=== PATIENT | female | born 1960 ===

== ENCOUNTER 2017-04-10 13:12 | Observation (INO) | payer OTHER ==
[2017-04-10] MEDS ORDERED: Nitroglycerin 2% Ointment Foilpak UD TOP STA (13:34)
--- NOTE | 2017-04-10 13:35 | ED PDOC ---
HPI: General Adult Time Seen by Provider: 04/10/17 13:33 Chief Complaint (Nursing): Chest Pain Chief Complaint (Provider): chest pain History Per: Patient (56 y/o femal h/o HTN here for evaluation of chest pain that occurred today around 6:30am while walking. States she felt chest pressure that was worse with deep breathing at that time lasting short duration of few minutes. Patient has noted left hand numbness since yesterday. Denies any weakness in this extremity. Noticed sensation of numbness by face around during episode of chest pain. Has h/o HTn. Denies any DM/HLD/smoking/h/o MT/h/ o CVA.) Past Medical History Reviewed: Historical Data, Nursing Documentation, Vital Signs Vital Signs: Last Vital Signs Temp 98.6 F 04/10/17 13:13 Pulse 61 04/10/17 15:11 Resp 20 04/10/17 15:11 BP 148/76 04/10/17 15:11 Pulse Ox 98 04/10/17 15:11 - Family History Family History: States: No Known Family Hx - Allergies Allergies/Adverse Reactions: Allergies Allergy/AdvReac Type Severity Reaction Status Date / Time No Known Allergies Allergy Verified 04/10/17 13:13 Review of Systems ROS Statement: Except As Marked, All Systems Reviewed And Found Negative Physical Exam - Reviewed Nursing Documentation Reviewed: Yes Vital Signs Reviewed: Yes - Physical Exam Appears: Positive for: Well, Non-toxic, No Acute Distress Head Exam: Positive for: ATRAUMATIC, NORMAL INSPECTION, NORMOCEPHALIC Skin: Positive for: Normal Color, Warm, DRY Eye Exam: Positive for: EOMI, Normal appearance, PERRL ENT: Positive for: Normal ENT Inspection Neck: Positive for: Normal, Painless ROM Cardiovascular/Chest: Positive for: Regular Rate, Rhythm Respiratory: Positive for: CNT, Normal Breath Sounds Gastrointestinal/Abdominal: Positive for: Normal Exam, Bowel Sounds, Soft Back: Positive for: Normal Inspection Extremity: Positive for: Normal ROM Neurologic/Psych: Positive for: Alert, Oriented - Laboratory Results Result Diagrams: 04/10/17 13:40 04/10/17 13:40 - ECG ECG Rhythm: Positive for: Sinus Rhythm (q wave lead III. non-specific t wave abnormality v3-v5) O2 Sat by Pulse Oximetry: 98 - Progress ED Course And Treament: slg nitro x 1 dose Patient notes improvement of left arm numbness but headache Took asa prior to ED. Tylenol 975mg x 1 dose Repeat BP 130/[address]: neg CXR: neg d/w family med resident. Disposition - Clinical Impression Clinical Impression: Chest pain - Patient ED Disposition Is Patient to be Admitted: Yes - Disposition Disposition Time: 15:56 Condition: FAIR - Pt Status Changed To: Hospital Disposition Of: Observation
[2017-04-10 13:51] LABS: BASO # 0.1 K/uL (0.0-0.2); BASO % 0.9 % (0.0-2.0); EOS # 0.1 K/uL (0.0-0.7); EOS % 0.9 % (0.0-4.0); HEMATOCRIT 41.5 % (34.0-47.0); LYMPH # 2.5 K/uL (1.0-4.3); LYMPH % 29.3 % (20.0-40.0); MEAN CELL VOLUME 90.3 fl (81.0-99.0); MEAN CORPUSCULAR HEMOGLOBIN 29.6 pg (27.0-31.0); MEAN CORPUSCULAR HGB CONC 32.8 g/dL (33.0-37.0); MEAN PLATELET VOLUME 8.1 fl (7.2-11.7); MONO # 0.4 K/uL (0.0-0.8); MONO % 5.2 % (0.0-10.0); NEUT # 5.5 K/uL (1.8-7.0); NEUT % 63.7 % (50.0-75.0); NRBC % 0.1 % (0.0-0.0); RED CELL DISTRIBUTION WIDTH 12.7 % (11.5-14.5); WHITE BLOOD COUNT 8.6 K/uL (4.8-10.8)
[2017-04-10 13:59] LABS: ALB/GLOB RATIO 1.2 (1.0-2.1); ALKALINE PHOSPHATASE 90 U/L (38-126); ALT/SGPT 36 U/L (9-52); AST/SGOT 32 U/L (14-36); BILIRUBIN,TOTAL 0.3 mg/dl (0.2-1.3); BLOOD UREA NITROGEN 15 mg/dl (7-17); CALCIUM 9.8 mg/dL (8.4-10.2); CARBON DIOXIDE 25 mmol/L (22-30); CHLORIDE 105 mmol/L (98-107); GFR AFRICAN-AMERICAN > 60; GLUCOSE,RANDOM 100 mg/dL (65-105); MAGNESIUM 1.8 MG/DL (1.6-2.3); POTASSIUM 3.7 MMOL/L (3.6-5.0); SODIUM 143 mmol/l (132-148); TOTAL PROTEIN 8.7 G/DL (6.3-8.2)
--- NOTE | 2017-04-10 14:03 | RAD ---
HISTORY: chest pain COMPARISON: No prior. FINDINGS: LUNGS: No active pulmonary disease. PLEURA: No significant pleural effusion identified, no pneumothorax apparent. CARDIOVASCULAR: Heart size is upper limits of normal. OSSEOUS STRUCTURES: No significant abnormalities. VISUALIZED UPPER ABDOMEN: Normal. OTHER FINDINGS: None. IMPRESSION: No active disease.
--- NOTE | 2017-04-10 15:19 | CT ---
PROCEDURE: CT HEAD WITHOUT CONTRAST. HISTORY: numbness left hand COMPARISON: None available. TECHNIQUE: Axial computed tomography images were obtained through the head/brain without intravenous contrast. Radiation dose: Total exam DLP = 762.27 mGy-cm. This CT exam was performed using one or more of the following dose reduction techniques: Automated exposure control, adjustment of the mA and/or kV according to patient size, and/or use of iterative reconstruction technique. FINDINGS: HEMORRHAGE: No acute parenchymal, subarachnoid or extra-axial hemorrhage. BRAIN: No evidence of large acute infarct. There appears be some very minimal chronic periventricular white matter ischemic changes most conspicuous in the perifrontal horn white matter. . . There are small bilateral age-indeterminate anterior basal ganglia ischemic changes as well. Note that small hyperacute infarct may not be visualized on initial CT imaging. Ventricular and sulcal size are within range of normal for this patient's stated age. No obvious parenchymal nor extra-axial mass or collection seen on this noncontrast study. VENTRICLES: No evidence of obstructive hydrocephalus CALVARIUM: Calvarium is intact. PARANASAL SINUSES: Unremarkable as visualized. No significant inflammatory changes. MASTOID AIR CELLS: Unremarkable as visualized. No inflammatory changes. OTHER FINDINGS: None. IMPRESSION: No evidence of large acute infarct. There appears be some very minimal chronic periventricular white matter ischemic changes most conspicuous in the perifrontal horn white matter. . . There are small bilateral age-indeterminate anterior basal ganglia ischemic changes as well. Note that small hyperacute infarct may not be visualized on initial CT imaging.
--- NOTE | 2017-04-10 18:18 | CP.PCM.HP ---
History of Present Illness - History of Present Illness History of Present Illness: 56 yo female with no significant PMH came in because of chest discomfort since early this morning accompanied with numbness of the face and left upper extremity. The chest discomfort came on and off, usually aggravated with deep breathing until it disappeared around noon time. The numbness had disappeared also around the same time.. She denied SOB, fever or chills. Present on Admission - Present on Admission Any Indicators Present on Admission: No History of DVT/PE: No History of Uncontrolled Diabetes: No Urinary Catheter: No Decubitus Ulcer Present: No Review of Systems - Review of Systems All systems: reviewed and no additional remarkable complaints except (aside from those mentioned above, 12 point system review were negative by me) Past Patient History - Tetanus Immunizations Tetanus Immunization: Unknown - Past Medical History & Family History Pertinent Family History: mother of NC at 41 yrs old - Past Social History Smoking Status: Never Smoked Alcohol: None Drugs: Denies Home Situation {Lives}: With Family - CARDIAC Hx Hypertension: Yes (not on any medication) - PULMONARY Hx Respiratory Disorders: No - NEUROLOGICAL Hx Neurological Disorder: No - HEENT Hx HEENT Problems: No - RENAL Hx Chronic Kidney Disease: No - ENDOCRINE/METABOLIC Hx Endocrine Disorders: No - HEMATOLOGICAL/ONCOLOGICAL Hx Blood Disorders: No - INTEGUMENTARY Hx Dermatological Problems: No - MUSCULOSKELETAL/RHEUMATOLOGICAL Hx Musculoskeletal Disorders: No - GASTROINTESTINAL Hx Gastrointestinal Disorders: No - GENITOURINARY/GYNECOLOGICAL Hx Genitourinary Disorders: No - PSYCHIATRIC Hx Psychophysiologic Disorder: No Hx Substance Use: No - SURGICAL HISTORY Hx Surgeries: Yes Hx Section: Yes Other/Comment: carpal tunnel surgery on right hand - ANESTHESIA Hx Anesthesia: Yes Hx Anesthesia Reactions: No Meds Allergies/Adverse Reactions: Allergies Allergy/AdvReac Type Severity Reaction Status Date / Time No Known Allergies Allergy Verified 04/10/17 13:13 Physical Exam - Constitutional Appears: No Acute Distress - Head Exam Head Exam: ATRAUMATIC - Eye Exam Eye Exam: absent: Scleral icterus - ENT Exam ENT Exam: Mucous Membranes Moist - Neck Exam Neck exam: Negative for: Meningismus - Respiratory Exam Respiratory Exam: absent: Rhonchi, Wheezes, Respiratory Distress - Cardiovascular Exam Cardiovascular Exam: REGULAR RHYTHM, +S1, +S2 - GI/Abdominal Exam GI & Abdominal Exam: Soft. absent: Tenderness - Rectal Exam Rectal Exam: Deferred - Extremities Exam Extremities exam: Negative for: pedal edema - Back Exam Back exam: NORMAL INSPECTION - Neurological Exam Neurological exam: Alert, Oriented x3 - Psychiatric Exam Psychiatric exam: Normal Affect - Skin Skin Exam: Dry, Intact Results - Vital Signs Recent Vital Signs: Last Vital Signs Temp 98.6 F 04/10/17 13:13 Pulse 61 04/10/17 15:11 Resp 20 04/10/17 15:11 BP 148/76 04/10/17 15:11 Pulse Ox 98 04/10/17 15:57 - Labs Result Diagrams: 04/10/17 13:40 04/10/17 13:40 Assessment & Plan (1) Chest pain Status: Acute Comment: place on observation in telemetry. serial Troponin and EKG. Lipid profile. ASA 81mg PO daily (2) HTN (hypertension) Status: Acute Comment: BP stable. low salt diet. monitor BP
--- NOTE | 2017-04-10 23:41 | CARD ---
APPROVED REPORT EKG Measurement Heart [id number] WI [id number] <Conclusion> Sinus bradycardia Inferior infarct, age undetermined Nonspecific anterior T wave changes Abnormal ECG
[2017-04-11 04:24] LABS: RBC URINE 1 /hpf (0-3); URINE BACTERIA RARE (<OCC); URINE BILIRUBIN NEGATIVE (NEGATIVE); URINE BLOOD NEGATIVE (NEGATIVE); URINE COLOR YELLOW (YELLOW); URINE GLUCOSE (UA) NEG (Normal); URINE KETONE NEGATIVE (NEGATIVE); URINE LEUKOCYTE ESTERASE NEG Leu/uL (Negative); URINE PROTEIN NEGATIVE (NEGATIVE); URINE UROBILINOGEN 0.2-1.0 mg/dL (0.2-1.0); WBC URINE 1 /hpf (0-5)
[2017-04-11 07:33] LABS: BASO % 0.5 % (0.0-2.0); EOS # 0.1 K/uL (0.0-0.7); EOS % 1.5 % (0.0-4.0); HEMATOCRIT 40.3 % (34.0-47.0); LYMPH # 2.6 K/uL (1.0-4.3); LYMPH % 34.3 % (20.0-40.0); MEAN CELL VOLUME 89.7 fl (81.0-99.0); MEAN CORPUSCULAR HGB CONC 33.4 g/dL (33.0-37.0); MEAN PLATELET VOLUME 8.4 fl (7.2-11.7); MONO # 0.5 K/uL (0.0-0.8); MONO % 6.1 % (0.0-10.0); NEUT # 4.4 K/uL (1.8-7.0); NEUT % 57.6 % (50.0-75.0); RED CELL DISTRIBUTION WIDTH 12.9 % (11.5-14.5); WHITE BLOOD COUNT 7.6 K/uL (4.8-10.8)
[2017-04-11] MEDS ORDERED: Potassium Ch 20mEq in D5-1/2NS 1,000 ML IV SCH (07:45)
[2017-04-11 07:46] LABS: BLOOD UREA NITROGEN 12 mg/dl (7-17); CALCIUM 9.3 mg/dL (8.4-10.2); CARBON DIOXIDE 26 mmol/L (22-30); CHLORIDE 106 mmol/L (98-107); CHOLESTEROL 232 mg/dL (0-199); GFR AFRICAN-AMERICAN > 60; GLUCOSE,RANDOM 98 mg/dL (65-105); POTASSIUM 4.1 MMOL/L (3.6-5.0); SODIUM 143 mmol/l (132-148)
[2017-04-11 08:15] LABS: THYROID STIMULATING HORMONE 4.84 mIU/ML (0.46-4.68)
[2017-04-11] MEDS: Pantoprazole 40 mg EC Tab PO SCH (09:00)
[2017-04-11] MEDS: Enoxaparin 40 mg Syringe SC SCH (09:00)
--- NOTE | 2017-04-11 10:34 | CP.PCM.CON ---
History of Present Illness - History of Present Illness History of Present Illness: NEW ONSET CP X 1 YESTERDAY. cp was mid chest, lasting 10 min and resolving on own. moderate in severity. no radiation of pain. no associated sob, palp, diaphoresis. no exacerbating or alleviating factors. pt did take asa prior to presenting to er. no prior episodes. She has no medical hx. and no sig fam hx. pt denies tabacoo or etoh. upon presentation she did have elevated bp w/ o a hx of htn. pt is cp free today. she denies LE pain, swelling, erythema. her d dimer is mildly elevated. Review of Systems - Review of Systems All systems: reviewed and no additional remarkable complaints except - Constitutional Constitutional: absent: As Per HPI, Anorexia, Chills, Daytime Sleepiness, Excessive Sweating, Fatigue, Fever, Frequent Falls, Headache, Increased Appetite , Lethargy, Malaise, Night Sweats, Snoring, Sleep Apnea, Weight Gain, Weight Loss, Weakness, Other - EENT Eyes: absent: As Per HPI, Blind Spots, Blurred Vision, Change in Vision, Decreased Night Vision, Diplopia, Discharge, Dry Eye, Exophthalmos, Floaters, Irritation, Itchy Eyes, Loss of Peripheral Vision, Pain, Photophobia, Requires Corrective Lenses, Sees Flashes, Spots in Vision, Tunnel Vision, Other Visual Disturbances, Loss of Vision, Other Ears: absent: As Per HPI, Decreased Hearing, Ear Discharge, Ear Pain, Tinnitus, Abnormal Hearing, Disequilibrium, Dizziness, Other Nose/Mouth/Throat: absent: As Per HPI, Epistaxis, Nasal Congestion, Nasal Discharge, Nasal Obstruction, Nasal Trauma, Nose Pain, Post Nasal Drip, Sinus Pain, Sinus Pressure, Bleeding Gums, Change in Voice, Dental Pain, Dry Mouth, Dysphagia, Halitosis, Hoarsness, Lip Swelling, Mouth Lesions, Mouth Pain, Odynophagia, Sore Throat, Throat Swelling, Tongue Swelling, Facial Pain, Neck Pain, Neck Mass, Other - Cardiovascular Cardiovascular: Chest Pain, Chest Pain at Rest. absent: As Per HPI, Acrocyanosis, Chest Pain with Activity, Claudication, Diaphoresis, Dyspnea, Dyspnea on Exertion, Edema, Irregular Heart Rhythm, Pain Radiating to Arm/Neck/ Jaw, Leg Edema, Leg Ulcers, Lightheadedness, Orthopnea, Palpitations, Paroxysmal Nocturnal Dyspnea, Pedal Edema, Radiating Pain, Rapid Heart Rate, Slow Heart Rate, Syncope, Other - Respiratory Respiratory: absent: As Per HPI, Cough, Dyspnea, Hemoptysis, Dyspnea on Exertion , Wheezing, Snoring, Stridor, Pain on Inspiration, Chest Congestion, Excessive Mucous Production, Change in Mucous Color, Pain with Coughing, Other - Gastrointestinal Gastrointestinal: absent: As Per HPI, Abdominal Pain, Belching, Bloating, Change in Bowel Habits, Change in Stool Character, Coffee Ground Emesis, Constipation, Cramping, Diarrhea, Dyspepsia, Dysphagia, Early Satiety, Excessive Flatus, Fecal Incontinence, Heartburn, Hematemesis, Hematochezia, Loose Stools, Melena, Nausea, Odynophagia, Temesmus, Vomiting, Other - Genitourinary Genitourinary: absent: As Per HPI, Change in Urinary Stream, Difficulty Urinating, Dysuria, Flank Pain, Hematuria, Pyuria, Nocturia, Urinary Incontinence, Urinary Frequency, Urinary Hesitance, Urinary Urgency, Voiding Freq/Small Amts, Freq UTI, Hx Renal/Bladder Calculi, Hx /Renal Surgery, Bladder Distension, Other - Musculoskeletal Musculoskeletal: absent: As Per HPI, Abnormal Gait, Arthralgias, Atrophy, Back Pain, Deformity, Joint Swelling, Limited Range of Motion, Loss of Height, Muscle Cramps, Muscle Weakness, Myalgias, Neck Pain, Numbness, Radiating Pain into Limb, Stiffness, Tingling, Other - Integumentary Integumentary: absent: As Per HPI, Acne, Alopecia, Bleeding Lesions, Change in Hair, Change in Nails, Change in Pigmentation, Changing Lesions, Dry Skin, Erythema, Furuncle, Hirsutism, Lesions, New Lesions, Non-Healing Lesions, Photosensitivity, Pruritus, Rash, Skin Pain, Skin Ulcer, Sores, Striae, Swelling , Unusual Bruising, Wounds, Jaundice, Other - Neurological Neurological: absent: As Per HPI, Abnormal Gait, Abnormal Hearing, Abnormal Movements, Abnormal Speech, Behavioral Changes, Burning Sensations, Confusion, Convulsions, Disequilibrium, Dizziness, Numbness, Focal Weakness, Frequent Falls , Headaches, Lack of Coordination, Loss of Vision, Memory Loss, Paresthesias, Radicular Pain, Restless Legs, Sensory Deficit, Syncope, Tingling, Tremor, Vertigo, Weakness, Other Visual Disturbances, Other - Psychiatric Psychiatric: absent: As Per HPI, Abnormal Sleep Pattern, Anhedonia, Anxiety, Auditory Hallucinations, Behavioral Changes, Change in Appetite, Change in Libido, Confusion, Depression, Difficulty Concentrating, Hallucinations, Homicidal Ideation, Hopelessness, Irritability, Memory Loss, Mood Swings, Panic Attacks, Paranoia, Suicidal Ideation, Visual Hallucinations, Tactile Hallucinations, Other - Endocrine Endocrine: absent: As Per HPI, Change in Body Appearance, Change in Libido, Cold Intolorance, Deepening of Voice, Excessive Sweating, Fatigue, Flushing, Heat Intolorance, Increase in Ring/Shoe/Hat Size, Palpitations, Polydipsia, Polyphagia, Polyuria, Other - Hematologic/Lymphatic Hematologic: absent: As Per HPI, Easy Bleeding, Easy Bruising, Lymphadenopathy, Other Past Patient History - Tetanus Immunizations Tetanus Immunization: Unknown - Past Medical History & Family History Past Medical History?: No Past Family History: Reviewed and not pertinent - Past Social History Smoking Status: Never Smoked Alcohol: None Drugs: Denies Home Situation {Lives}: With Family Domestic Violence: Negative - CARDIAC Hx Hypertension: No (not on any medication) - PULMONARY Hx Respiratory Disorders: No - NEUROLOGICAL Hx Neurological Disorder: No - HEENT Hx HEENT Problems: No - RENAL Hx Chronic Kidney Disease: No - ENDOCRINE/METABOLIC Hx Endocrine Disorders: No - HEMATOLOGICAL/ONCOLOGICAL Hx Blood Disorders: No - INTEGUMENTARY Hx Dermatological Problems: No - MUSCULOSKELETAL/RHEUMATOLOGICAL Hx Musculoskeletal Disorders: No - GASTROINTESTINAL Hx Gastrointestinal Disorders: No - GENITOURINARY/GYNECOLOGICAL Hx Genitourinary Disorders: No - PSYCHIATRIC Hx Psychophysiologic Disorder: No Hx Substance Use: No - SURGICAL HISTORY Hx Surgeries: Yes Hx Section: Yes Other/Comment: carpal tunnel surgery on right hand - ANESTHESIA Hx Anesthesia: Yes Hx Anesthesia Reactions: No Meds Allergies/Adverse Reactions: Allergies Allergy/AdvReac Type Severity Reaction Status Date / Time No Known Allergies Allergy Verified 04/10/17 13:13 - Medications Medications: Current Medications Acetaminophen (Tylenol 325mg Tab) 650 mg PO Q6 PRN PRN Reason: Pain, Mild (1-3) Aspirin (Aspirin) 325 mg PO DAILY ON LICENSE OF [facility] Last Admin: 04/11/17 09:01 Dose: 325 mg Carvedilol (Coreg) 6.25 mg PO Q12 ON LICENSE OF [facility] Last Admin: 04/11/17 09:02 Dose: Not Given Enoxaparin Sodium (Lovenox) 40 mg SC DAILY ON LICENSE OF [facility] PRN Reason: Protocol Last Admin: 04/11/17 09:00 Dose: 40 mg Potassium Chloride/Dextrose/Sod Cl (Potassium Chl 20 Meq In D5-1/2ns) 1,000 mls @ 125 mls/hr IV .Q8H ON LICENSE OF [facility] Stop: 04/12/17 07:35 Last Admin: 04/11/17 08:55 Dose: 125 mls/hr Nitroglycerin (Nitrostat Sl Tab) 0.4 mg SL Q5M PRN PRN Reason: chest pain Pantoprazole Sodium (Protonix Ec Tab) 40 mg PO DAILY ON LICENSE OF [facility] Last Admin: 04/11/17 09:00 Dose: 40 mg Ramipril (Altace) 2.5 mg PO DAILY ON LICENSE OF [facility] Last Admin: 04/11/17 09:01 Dose: 2.5 mg Physical Exam - Constitutional Appears: Well - Head Exam Head Exam: ATRAUMATIC, NORMAL INSPECTION, NORMOCEPHALIC - Eye Exam Eye Exam: EOMI, Normal appearance, PERRL. absent: Conjunctival injection, Nystagmus, Periorbital swelling, Periorbital tenderness, Scleral icterus Pupil Exam: NORMAL ACCOMODATION, PERRL. absent: Fixed, Irregular, Miosis, Mydriatic, Unequal - ENT Exam ENT Exam: Mucous Membranes Moist, Normal Exam. absent: Mucous Membranes Dry, Normal External Ear Exam, Normal Oropharynx, TM's Normal Bilaterally - Neck Exam Neck exam: Positive for: Normal Inspection. Negative for: Full Rom, Lymphadenopathy, Meningismus, Tenderness, Thyromegaly - Respiratory Exam Respiratory Exam: Clear to Auscultation Bilateral, NORMAL BREATHING PATTERN. absent: Accessory Muscle Use, Chest Wall Tenderness, Decreased Breath Sounds, Prolonged Expiratory Phase, Rales, Rhonchi, Wheezes, Respiratory Distress, Stridor - Cardiovascular Exam Cardiovascular Exam: REGULAR RHYTHM, +S1, +S2, Systolic Murmur. absent: Bradycardia, Tachycardia, Clicks, Diastolic murmur, Gallop, Irregular Rhythm, JVD, RRR, Rubs, +S4 - GI/Abdominal Exam GI & Abdominal Exam: Normal Bowel Sounds, Soft. absent: Bruit, Diminished Bowel Sounds, Distended, Firm, Guarding, Hernia, Hyperactive Bowel Sounds, Hypoactive Bowel Sounds, Mass, Organomegaly, Pulsatile Mass, Rebound, Rigid, Tenderness - Rectal Exam Rectal Exam: Deferred - Extremities Exam Extremities exam: Positive for: normal inspection. Negative for: calf tenderness, full ROM, joint swelling, normal capillary refill, pedal edema, tenderness, pedal pulses present - Back Exam Back exam: NORMAL INSPECTION. absent: CVA tenderness (L), CVA tenderness (R), FULL ROM, muscle spasm, paraspinal tenderness, rash noted, tenderness, vertebral tenderness - Neurological Exam Neurological exam: Alert, CN II-XII Intact, Normal Gait, Oriented x3, Reflexes Normal - Psychiatric Exam Psychiatric exam: Normal Affect, Normal Mood - Skin Skin Exam: Dry, Intact, Normal Color, Warm Results - Vital Signs Recent Vital Signs: Last Vital Signs Temp 98.2 F 04/11/17 08:52 Pulse 60 04/11/17 08:52 Resp 18 04/11/17 08:52 BP 144/87 04/11/17 08:52 Pulse Ox 99 04/11/17 08:52 - Labs Result Diagrams: 04/11/17 07:16 04/11/17 07:16 Labs: Laboratory Results - last 24 hr 04/10/17 04/10/17 04/11/17 22:21 23:21 04:13 WBC RBC Hgb Hct MCV MCH MCHC RDW Plt Count MPV Neut % (Auto) Lymph % (Auto) Dickson % (Auto) Eos % (Auto) Baso % (Auto) Neut # Lymph # Dickson # Eos # Baso # D-Dimer, Quantitative 582 H Sodium Potassium Chloride Carbon Dioxide Anion Gap BUN Creatinine Est GFR ( Amer) Est GFR (Non-Af Amer) Random Glucose Calcium Magnesium Troponin I < 0.0120 Triglycerides Cholesterol LDL Cholesterol Direct HDL Cholesterol TSH 3rd Generation Urine Color Yellow Urine Clarity Clear Urine pH 6.0 Ur Specific [place] 1.012 Urine Protein Negative Urine Glucose (UA) Neg Urine Ketones Negative Urine Blood Negative Urine Nitrate Negative Urine Bilirubin Negative Urine Urobilinogen 0.2-1.0 Ur Leukocyte Esterase Neg Urine RBC (Auto) 1 Urine Microscopic WBC 1 Ur Squamous Epith Cells 1 Urine Bacteria Rare 04/11/17 04/11/17 04/11/17 04:16 07:16 07:16 WBC 7.6 RBC 4.50 Hgb 13.5 Hct 40.3 MCV 89.7 MCH 30.0 MCHC 33.4 RDW 12.9 Plt Count 266 MPV 8.4 Neut % (Auto) 57.6 Lymph % (Auto) 34.3 Dickson % (Auto) 6.1 Eos % (Auto) 1.5 Baso % (Auto) 0.5 Neut # 4.4 Lymph # 2.6 Dickson # 0.5 Eos # 0.1 Baso # 0.0 D-Dimer, Quantitative Sodium 143 Potassium 4.1 Chloride 106 Carbon Dioxide 26 Anion Gap 15 BUN 12 Creatinine 0.8 Est GFR ( Amer) > 60 Est GFR (Non-Af Amer) > 60 Random Glucose 98 Calcium 9.3 Magnesium 1.9 Troponin I < 0.0120 Triglycerides 165 H Cholesterol 232 H LDL Cholesterol Direct 161 H HDL Cholesterol 31 TSH 3rd Generation 4.84 H Urine Color Urine Clarity Urine pH Ur Specific [place] Urine Protein Urine Glucose (UA) Urine Ketones Urine Blood Urine Nitrate Urine Bilirubin Urine Urobilinogen Ur Leukocyte Esterase Urine RBC (Auto) Urine Microscopic WBC Ur Squamous Epith Cells Urine Bacteria - EKG Data EKG Interpreted by: Myself EKG shows normal: Sinus rhythm Rate: Normal - EKG Data EKG comments: nonspecific t wave flattening. Assessment & Plan (1) D-dimer, elevated Status: Acute (2) Chest pain Status: Acute (3) HTN (hypertension) Status: Acute - Assessment and Plan (Free Text) Plan: 1) ECHO TODAY 2) NO CTA PT HAS NO SOB, NO TACHYCARDIA, NO TANYA PAIN OR REDNESS. ALSO STRESS TEST MORE PRESSING AND CT CONTRAST WILL DELAY NUCLEAR ST. 3) EX NUC ST IF NEGATIVE THEN MAY GO HOME FROM CARDIAC STANDPOINT, IF POSITIVE THEN CATH 4) GIVEN HTN PT SHOULD BE D/C ON RAMIPRIL AND COREG 5) F/U IN CLINIC WITH DR REVELES 6) PT IS LOW RISK FOR PE, THUS WOULD LIMIT TESTING TO LE DOPPLER IF CONCERNED. 7) 45 MIN TOTAL CARE TIME 8) DW ER STAFF AND PT AND .
--- NOTE | 2017-04-11 12:49 | US ---
PROCEDURE: Bilateral lower extremity venous duplex Doppler. HISTORY: dimer elevated COMPARISON: None available. TECHNIQUE: Bilateral common femoral, superficial femoral, popliteal and posterior tibial veins were evaluated. Flow was assessed with color Doppler, compressibility, assessment of phasic flow and augmentation response. FINDINGS: COMMON FEMORAL VEIN: Right CFV: Unremarkable. Left CFV: Unremarkable. SUPERFICIAL FEMORAL VEIN: Right SFV: Unremarkable. Left SFV: Unremarkable. POPLITEAL VEIN: Right Popliteal: Unremarkable. Left Popliteal: Unremarkable. POSTERIOR TIBIAL VEIN: Right PTV: Unremarkable. Left PTV: Unremarkable. OTHER FINDINGS: None. IMPRESSION: No evidence of deep venous thrombosis.
--- NOTE | 2017-04-11 15:31 | CP.PCM.PN ---
Subjective - Date & Time of Evaluation Date of Evaluation: 04/11/17 Time of Evaluation: 15:10 - Subjective Subjective: Hospitalist Progress Note (Patient was seen and examined at 3:10 PM 04/11/17 in ER Bed #7) 56 year old female who presented to [facility] ER on 04/10/17 with complaint of Chest Pain since the morning with numbness to the face and left UE which resolved by noon. She came into the ER because she was concerned. Troponins were negative x 3. Cardiology was consulted and Myocardial Perfusion Scan was performed today and results are pending. D-Dimer is elevated and B/L Venous Dopplers are negative and CT Angio Chest will be performed in the morning 04/12/17, as additional contrast could not be given today because of the performance of the Myocardial Perfusion Scan. CT Head was negative. Currently upon FULL ROS there is NO chest pain, NO palpitations, NO SOB/Cough/ Hemoptysis, NO dysphagia/odynophagia, NO abdominal pain, NO n/v/d/c, NO burning/ pain with urination, NO new changes in vision/eye pain, NO new changes in hearing/ear pain, NO lightheadedness/dizziness, NO paresthesias/loss of sensation, NO edema Exam: HEENT: NCA, EOMI, PERRLA, NO pharyngeal erythema/exudate, NO cervical/ supraclavicular/submandibular lymphadenopathy, NO thyromemgaly, Oral Mucosa and Nasal Turbinates are moist Cardio: NS1 and NS2, NO M/R/G Respiratory: CTA B/L, NO R/R/W GI: BS X 4, Soft, NT, ND, NO HSM, NO guarding/rebound tenderness Ext: Pulses are strong and equal, Capillary Refill is 2 seconds, NO edema Neuro: CN II through XII are grossly intact Assessment and Plan: 1). Atypical Chest Pain Troponins x 3 are negative F/U 2D Echocardiogram F/U Myocardial Perfusion Scan Cardiology Dr. Stock ASA 325 mg PO 1x/day Coreg 6.25 mg PO Q12H 2). HTN Ramipril 2.5 mg PO 1x/day Coreg 6.25 mg PO Q12H 3). HLD Triglycerides 165 Total Cholesterol 232 LDL 161 HDL 31 Dietary Consult for education on Low Fat/Low Cholesterol Diet 4). Elevated TSH TSH is slightly elevated at 4.84 F/U T4 and repeat TSH 5). Elevated Quantitative D-Dimer Bilateral Venous Doppler is negative She scored a Zero on Wells Criteria (NO prior DVT/PE, NO Hx Cancer, NO bed rest for the past 3 or more days, NO surgeries/operations in the past 4 weeks, Alternative diagonsis is more likely, NO clinical signs of DVT, NO tachycardia, NO history of hemoptysis) Therefore V/Q Scan has been ordered STAT 6). Prophylactic Measure Protonix 40 mg PO 1x/day Lovenox 40 mg SC 1x/day If the V/Q Scan and the Mycocardial Perfusion Scan are negative then discharge on 04/12/17. Nicholas Gomez D.O. Objective - Vital Signs/Intake and Output Vital Signs (last 24 hours): Temp Pulse Resp BP Pulse Ox 98.0 F 66 16 122/71 100 04/11/17 13:56 04/11/17 13:56 04/11/17 13:56 04/11/17 13:56 04/11/17 13:56 - Medications Medications: Current Medications Acetaminophen (Tylenol 325mg Tab) 650 mg PO Q6 PRN PRN Reason: Pain, Mild (1-3) Aspirin (Aspirin) 325 mg PO DAILY [facility] Last Admin: 04/11/17 09:01 Dose: 325 mg Carvedilol (Coreg) 6.25 mg PO Q12 [facility] Last Admin: 04/11/17 09:02 Dose: Not Given Enoxaparin Sodium (Lovenox) 40 mg SC DAILY [facility] PRN Reason: Protocol Last Admin: 04/11/17 09:00 Dose: 40 mg Potassium Chloride/Dextrose/Sod Cl (Potassium Chl 20 Meq In D5-1/2ns) 1,000 mls @ 125 mls/hr IV .Q8H [facility] Stop: 04/12/17 07:35 Last Admin: 04/11/17 08:55 Dose: 125 mls/hr Nitroglycerin (Nitrostat Sl Tab) 0.4 mg SL Q5M PRN PRN Reason: chest pain Pantoprazole Sodium (Protonix Ec Tab) 40 mg PO DAILY [facility] Last Admin: 04/11/17 09:00 Dose: 40 mg Ramipril (Altace) 2.5 mg PO DAILY [facility] Last Admin: 04/11/17 09:01 Dose: 2.5 mg - Labs Labs: 04/11/17 07:16 04/11/17 07:16
[2017-04-11] MEDS ORDERED: Sodium Chloride 0.9% 1,000 ML IV SCH (15:45)
--- NOTE | 2017-04-11 16:16 | CARD ---
APPROVED REPORT EXAM: Two-dimensional and M-mode echocardiogram with Doppler and color Doppler. Other Information Quality : GoodRhythm : NSR INDICATION Chest Pain 2D DIMENSIONS IVSd1.17 (0.7-1.1cm)LVDd3.82 (3.9-5.9cm) LVOT Diameter1.98 (1.8-2.4cm)PWd0.74 (0.7-1.1cm) IVSs1.47 (0.8-1.2cm)LVDs2.34 (2.5-4.0cm) FS (%) 38.7 %PWs1.09 (0.8-1.2cm) LVEF (%)55.0 (>50%) M-Mode DIMENSIONS Left Atrium (MM)3.47 (2.5-4.0cm)IVSd1.08 (0.7-1.1cm) Aortic Root2.14 (2.2-3.7cm)LVDd4.01 (4.0-5.6cm) Aortic Cusp Exc.1.34 (1.5-2.0cm)PWd1.03 (0.7-1.1cm) IVSs1.72 cmFS (%) 51 % LVDs1.98 (2.0-3.8cm)PWs1.60 cm Mitral Valve MV E Cmupslvp03.1cm/sMV DECEL [id number] A Nokfbuyl27.8cm/s MV ROQ81jqV/A ratio0.8MVA (PHT)2.53cm2 TDI Lateral E' Peak V7.33cm/sMedial E' Peak V5.21cm/sE/Lateral E'8.6 E/Medial E'12.1 Pulmonary Valve PV Peak Pehjeqlq100.3cm/s LEFT VENTRICLE The left ventricle is normal size. There is borderline concentric left ventricular hypertrophy. The left ventricular function is normal. The left ventricular ejection fraction is within the normal range. There is normal LV segmental wall motion. Transmitral Doppler flow pattern is Grade I-abnormal relaxation pattern. RIGHT VENTRICLE The right ventricle is normal size. There is normal right ventricular wall thickness. The right ventricular systolic function is normal. ATRIA The left atrium size is normal. The right atrium size is normal. AORTIC VALVE The aortic valve is not well visualized. No aortic regurgitation is present. There is no aortic valvular stenosis. MITRAL VALVE The mitral valve is normal in structure and function. There is no evidence of mitral valve prolapse. There is no mitral valve stenosis. There is no mitral valve regurgitation noted. TRICUSPID VALVE The tricuspid valve is normal in structure and function. There is no tricuspid valve regurgitation noted. PULMONIC VALVE The pulmonary valve is normal in structure and function. There is no pulmonic valvular regurgitation. GREAT VESSELS The aortic root is normal in size. The IVC is normal in size and collapses >50% with inspiration. PERICARDIAL EFFUSION The pericardium appears normal. <Conclusion> The left ventricle is normal size. There is borderline concentric left ventricular hypertrophy. The left ventricular function is normal. The left ventricular ejection fraction is within the normal range. There is normal LV segmental wall motion. Transmitral Doppler flow pattern is Grade I-abnormal relaxation pattern.
[2017-04-11 18:14] VITALS: BMI 25.5
[2017-04-12 04:57] VITALS: RESP 18
[2017-04-12 07:33] LABS: T4 7.55 ug/dl (5.5-11.0)
[2017-04-12 07:46] LABS: THYROID STIMULATING HORMONE 4.35 mIU/ML (0.46-4.68)
--- NOTE | 2017-04-12 08:28 | CARD ---
APPROVED REPORT EKG Measurement Heart [id number] CA [id number] [id number] <Conclusion> Normal sinus rhythm Inferior infarct, age undetermined Abnormal ECG
[2017-04-12] MEDS: Enoxaparin 40 mg Syringe SC SCH (09:08)
[2017-04-12] MEDS: Pantoprazole 40 mg EC Tab PO SCH (09:08)
--- NOTE | 2017-04-12 10:51 | CARD ---
APPROVED REPORT Protocol: SURESH Test Type: Stress Nuclear Medications: none Medical History: mother of AR at 42years old, carpal tunnel surgery on right hand, Hypertension not on any medication. Target HR: 165 bpm Resting ECG: normal Resting Heart Rate: 74 bpm Resting Blood Pressure: 129/85mmHg submaximum (85%): 140 bpm TEST SUMMARY [id number]/85.0. PRETESTHYPERV.00:[id number]/85.0. PRETESTWARM-UP01:[id number]/85.0. EXERCISESTAGE [id number]/60.0. EXERCISESTAGE [id number]/80.0. EXERCISESTAGE 302:[id number]/80.0. [id number]/60.0. POST EXERCISE Reason for Termination: Target heart rate achieved Target HR: No Max HR: 151 bpm 91% of Maximum Predicted HR: 165 bpm Exercise duration: 08:00 min:sec, 3 Stage Exercise capacity: 10.1METs Max Blood Pressure: 180/60mmHg Blood Pressure response to exercise: normal resting BP - appropriate response Heart Rate response to exercise: appropriate Chest Pain: No, none Angina index: 0 Arrhythmia: No, none ST Change: No, none Deviation: 0 mm Stress EKG Interpretation This 56 y/o female being evaluated for chest pain. Her resting EKG was normal. Resting heart rate was 75 bpm and her resting blood pressure was 129/85. She exercised for 8 minutes with Suresh protocol attaining a heart rate of 151 bpm which is 91% of maximum predicted heart rate Her blood pressure shelby to 180/60 and she attained a workload of 10.10 METs. During the test was no chest pain or shortness of breath. There was no ST changes or arrhythmia noted. Exertion the patient was injected with 30 mCi of Myoview stress imaging was taken one half hour later. EXAM: Myocardial Perfusion REST/STRESS Image QualityGood Imaging Protocol The imaging protocol used to acquire images was Stress Tc-99m/rest Tc-99m 1 day Stress Spect myocardial perfusion imaging was performed in supine position 30 minutes following the injection of 30 mCi of Tc-99 Myoview. Time of rest injection: 13:00 Time of rest imagin:30 At peak stress, the patient was injected intravenously with 10mCi of Tc-99 tetrofosmin after an infusion time of minutes and seconds. Time of stress injection: 11:47 Time of stress imagin:20 Gated Rest Spect was performed 90 minutes after intravenous Tc-99 Myoview injection. The images were gated to evaluate regional wall motion and calculate ventricular ejection fraction. NUCLEAR IMAGE INTERPRETATION The rest and stress images show normal perfusion, normal contraction and thickening. LV Perfusion There is good uptake in all garduno of the left ventricle in stress as well as resting imaging. No signs of ischemia LV Perfusion 1 The rest and stress images show normal perfusion. Wall Motion There is good contractility of the garduno of the left ventricle in stress as well as resting imaging and ejection fraction of 70-75% CONCLUSION 1. Stress myocardial perfusion imaging scan is normal
[2017-04-12 12:28] VITALS: BP 129/82; PULSE 61; TEMP 98.1; O2SAT 98
--- NOTE | 2017-04-12 12:30 | NM ---
COMPARISON: None TECHNIQUE: 46.190 mCi mCi technetium 99-m DTPA aerosol. 5.988 mCi mCI technetium 99-m MAA administered intravenously. FINDINGS: VENTILATION COMPONENT: Normal. PERFUSION COMPONENT: Normal. IMPRESSION: Lowprobability ventilation perfusion scan for pulmonary embolism. Incidentally noted is GI tract tracer activity from patient's preceding/ 04/10/2017 Myoview stress imaging exam
--- NOTE | 2017-04-12 12:57 | CP.PCM.DIS ---
Provider - Provider Date of Admission: 04/10/17 16:36 Attending physician: Shankar Rock MD Primary care physician: Does not have one Consults: Cardiology Dr. Stock Time Spent in preparation of Discharge (in minutes): 40 Hospital Course - Lab Results Lab Results: Most Recent Lab Values WBC 7.6 K/uL (4.8-10.8) 04/11/17 07:16 RBC 4.50 Mil/uL (3.80-5.20) 04/11/17 07:16 Hgb 13.5 g/dL (12.0-16.0) 04/11/17 07:16 Hct 40.3 % (34.0-47.0) 04/11/17 07:16 MCV 89.7 fl (81.0-99.0) 04/11/17 07:16 MCH 30.0 pg (27.0-31.0) 04/11/17 07:16 MCHC 33.4 g/dL (33.0-37.0) 04/11/17 07:16 RDW 12.9 % (11.5-14.5) 04/11/17 07:16 Plt Count 266 K/uL (130-400) 04/11/17 07:16 MPV 8.4 fl (7.2-11.7) 04/11/17 07:16 Neut % (Auto) 57.6 % (50.0-75.0) 04/11/17 07:16 Lymph % (Auto) 34.3 % (20.0-40.0) 04/11/17 07:16 [place] % (Auto) 6.1 % (0.0-10.0) 04/11/17 07:16 Eos % (Auto) 1.5 % (0.0-4.0) 04/11/17 07:16 Baso % (Auto) 0.5 % (0.0-2.0) 04/11/17 07:16 Neut # 4.4 K/uL (1.8-7.0) 04/11/17 07:16 Lymph # 2.6 K/uL (1.0-4.3) 04/11/17 07:16 [place] # 0.5 K/uL (0.0-0.8) 04/11/17 07:16 Eos # 0.1 K/uL (0.0-0.7) 04/11/17 07:16 Baso # 0.0 K/uL (0.0-0.2) 04/11/17 07:16 D-Dimer, Quantitative 582 ng/mlDDU (0-230) H 04/10/17 23:21 Sodium 143 mmol/l (132-148) 04/11/17 07:16 Potassium 4.1 MMOL/L (3.6-5.0) 04/11/17 07:16 Chloride 106 mmol/L (98-107) 04/11/17 07:16 Carbon Dioxide 26 mmol/L (22-30) 04/11/17 07:16 Anion Gap 15 (10-20) 04/11/17 07:16 BUN 12 mg/dl (7-17) 04/11/17 07:16 Creatinine 0.8 mg/dL (0.7-1.2) 04/11/17 07:16 Est GFR ( Amer) > 60 04/11/17 07:16 Est GFR (Non-Af Amer) > 60 04/11/17 07:16 Random Glucose 98 mg/dL (65-105) 04/11/17 07:16 Calcium 9.3 mg/dL (8.4-10.2) 04/11/17 07:16 Magnesium 1.9 MG/DL (1.6-2.3) 04/11/17 04:16 Total Bilirubin 0.3 mg/dl (0.2-1.3) 04/10/17 13:40 AST 32 U/L (14-36) 04/10/17 13:40 ALT 36 U/L (9-52) 04/10/17 13:40 Alkaline Phosphatase 90 U/L (38-126) 04/10/17 13:40 Troponin I < 0.0120 ng/mL (0.00-0.120) 04/11/17 07:16 Total Protein 8.7 G/DL (6.3-8.2) H 04/10/17 13:40 Albumin 4.9 g/dL (3.5-5.0) 04/10/17 13:40 Globulin 3.9 gm/dL (2.2-3.9) 04/10/17 13:40 Albumin/Globulin Ratio 1.2 (1.0-2.1) 04/10/17 13:40 Triglycerides 165 mg/DL (0-149) H 04/11/17 07:16 Cholesterol 232 mg/dL (0-199) H 04/11/17 07:16 LDL Cholesterol Direct 161 mg/dL (0-129) H 04/11/17 07:16 HDL Cholesterol 31 MG/DL (30-70) 04/11/17 07:16 Thyroxine (T4) 7.55 ug/dl (5.5-11.0) 04/12/17 06:40 TSH 3rd Generation 4.35 mIU/ML (0.46-4.68) 04/12/17 06:40 Urine Color Yellow (YELLOW) 04/11/17 04:13 Urine Clarity Clear (Clear) 04/11/17 04:13 Urine pH 6.0 (5.0-8.0) 04/11/17 04:13 Ur Specific [place] 1.012 (1.003-1.030) 04/11/17 04:13 Urine Protein Negative mg/dL (NEGATIVE) 04/11/17 04:13 Urine Glucose (UA) Neg mg/dL (Normal) 04/11/17 04:13 Urine Ketones Negative mg/dL (NEGATIVE) 04/11/17 04:13 Urine Blood Negative (NEGATIVE) 04/11/17 04:13 Urine Nitrate Negative (NEGATIVE) 04/11/17 04:13 Urine Bilirubin Negative (NEGATIVE) 04/11/17 04:13 Urine Urobilinogen 0.2-1.0 mg/dL (0.2-1.0) 04/11/17 04:13 Ur Leukocyte Esterase Neg Mg/uL (Negative) 04/11/17 04:13 Urine RBC (Auto) 1 /hpf (0-3) 04/11/17 04:13 Urine Microscopic WBC 1 /hpf (0-5) 04/11/17 04:13 Ur Squamous Epith Cells 1 /hpf (0-5) 04/11/17 04:13 Urine Bacteria Rare (<OCC) 04/11/17 04:13 - Hospital Course Hospital Course: Hospitalist Discharge Note (Patient was seen and examined at 9:30 AM 04/12/17 in 407-2) 56 year old female who presented to [facility] ER on 04/10/17 with complaint of Chest Pain since the morning with numbness to the face and left UE which resolved by noon. She came into the ER because she was concerned. CT Head showed NO acute infarcts but did show chronic periventricular white matter changes and small bilateral anterior basal ganglia ischemic changes. Troponins were negative x 3. Cardiology was consulted and Myocardial Perfusion Scan was performed 04/11/17 but results not available till 04/12/17 and this was NORMAL. D-Dimer is elevated and B/L Venous Dopplers are negative and V/Q Scan which was ordered STAT on 04/11 was not done till 04/12/17 and this showed Low Probability. Patient does not have a history of HTN but it was noted that her blood pressure was elevated while she was admitted and therefore she was started on Ramipril and Carvedilol. She was also noted to have hyperlipidemia and considering findings on CT Head she was started on Simvastatin. She is stable for discharge. Please see individual Assessment and Plans below for details. Currently upon FULL ROS there is NO chest pain, NO palpitations, NO SOB/Cough/ Hemoptysis, NO dysphagia/odynophagia, NO abdominal pain, NO n/v/d/c, NO burning/ pain with urination, NO new changes in vision/eye pain, NO new changes in hearing/ear pain, NO lightheadedness/dizziness, NO paresthesias/loss of sensation, NO edema Exam: HEENT: NCA, EOMI, PERRLA, NO pharyngeal erythema/exudate, NO cervical/ supraclavicular/submandibular lymphadenopathy, NO thyromemgaly, Oral Mucosa and Nasal Turbinates are moist Cardio: NS1 and NS2, NO M/R/G Respiratory: CTA B/L, NO R/R/W GI: BS X 4, Soft, NT, ND, NO HSM, NO guarding/rebound tenderness Ext: Pulses are strong and equal, Capillary Refill is 2 seconds, NO edema Neuro: CN II through XII are grossly intact, 5/5 strength with flexion and extension against my resistance in the bilateral UE and LE, NO loss of sensation , NO facial droop and no loss of sensation on any of the dermatomes of the face Assessment and Plan: 1). Atypical Chest Pain Troponins x 3 are negative 2D Echocardiogram showed borderline concentric LVH and Grade I abnormal relaxation pattern Myocardial Perfusion Scan was NORMAL Cardiology Dr. Stock ASA 325 mg PO 1x/day Coreg 6.25 mg PO Q12H 2). HTN Ramipril 2.5 mg PO 1x/day Coreg 6.25 mg PO Q12H 3). HLD Triglycerides 165 Total Cholesterol 232 LDL 161 HDL 31 Dietary Consult for education on Low Fat/Low Cholesterol Diet Simvastatin 10 mg PO 1x/day 4). Elevated TSH TSH is slightly elevated at 4.84 F/U T4 and repeat TSH 5). Elevated Quantitative D-Dimer Bilateral Venous Doppler is negative She scored a Zero on Wells Criteria (NO prior DVT/PE, NO Hx Cancer, NO bed rest for the past 3 or more days, NO surgeries/operations in the past 4 weeks, Alternative diagonsis is more likely, NO clinical signs of DVT, NO tachycardia, NO history of hemoptysis) V/Q Scan showed low probability 6). Prophylactic Measure Protonix 40 mg PO 1x/day Lovenox 40 mg SC 1x/day The following instructions were explained to patient in Dutch with the help of Electrolytic Etcher Rae: 1). You must follow up with the [facility] for further managment of your health care. Please call [phone] for an appointment to take place in the next 7 to 10 days. The [facility] center is located on [address] [place] [address] 2). You have high blood pressure therefore you were discharged on the following medications. Please make sure you have the prescriptions filled at your pharmacy. Refills must be obtained through the health center/clinic. Carvedilol 6.25 mg 1 tablet by mouth 2x/day (9 AM and 9 PM) Ramipril 2.5 mg 1 tablet by mouth 1x/day (9 AM) 3). You have high cholesterol. Please make sure that you have the following prescription filled at your pharmacy. Refills must be obtained through the health center/clinic. Simvastatin 10 mg 1 tablet by mouth 1x/day (Dinner Time). 4). Your heart is mildly enlarged and your brain has shown some signs of small strokes in the past. Therefore it is important for you to obtain a Primary Care Physician through the [facility] as mentioned above or through the [facility] ([phone]) located at [address] [place] [address] in [place], [place]. Please make sure that you do this in the next 7 to 10 days. 5). Please make sure that you bring a copy of this Discharge Summary with you to your appointment with the health center/clinic for the doctor's review. 6). Please take care, follow up at the health center/clinic, and be well. Nicholas Gomez D.O. Discharge Exam - Head Exam Head Exam: ATRAUMATIC, NORMAL INSPECTION, NORMOCEPHALIC Discharge Plan - Follow Up Plan Condition: FAIR Disposition: HOME/ ROUTINE Instructions: Hypertension (DC), Hypertension (GEN)
== END 2017-04-12 14:30 | disposition home or self-care (01) ==
LOC: H.ER 13:12 → H.ERHOLD 16:36 → H.TEL 04-11 17:24
DX: R07.89 Other chest pain (principal); E78.00 Pure hypercholesterolemia, unspecified; E78.5 Hyperlipidemia, unspecified; I10 Essential (primary) hypertension; Z79.82 Long term (current) use of aspirin; Z86.73 Personal history of transient ischemic attack (TIA), and cerebral infarction without residual deficits; O34.219 Maternal care for unspecified type scar from previous cesarean delivery; R20.0 Anesthesia of skin

== ENCOUNTER 2017-05-27 21:55 | Emergency (ER) | payer SELFPAY ==
[2017-05-27 21:55] VITALS: BMI 25.5
[2017-05-27 22:17] VITALS: TEMP 97.9
[2017-05-27 23:08] LABS: BASO # 0.1 K/uL (0.0-0.2); BASO % 0.8 % (0.0-2.0); EOS # 0.1 K/uL (0.0-0.7); EOS % 1.1 % (0.0-4.0); HEMOGLOBIN 12.5 g/dL (12.0-16.0); LYMPH # 3.2 K/uL (1.0-4.3); MEAN CORPUSCULAR HEMOGLOBIN 30.3 pg (27.0-31.0); MEAN CORPUSCULAR HGB CONC 33.7 g/dL (33.0-37.0); MEAN PLATELET VOLUME 8.2 fl (7.2-11.7); MONO # 0.5 K/uL (0.0-0.8); MONO % 6.5 % (0.0-10.0); NEUT # 4.1 K/uL (1.8-7.0); NEUT % 51.6 % (50.0-75.0); RBC 4.12 Mil/uL (3.80-5.20); RED CELL DISTRIBUTION WIDTH 12.9 % (11.5-14.5)
--- NOTE | 2017-05-27 23:13 | ED PDOC ---
HPI: Hypertension/Hypotension Time Seen by Provider: 05/27/17 22:30 Chief Complaint (Nursing): High Blood Pressure Chief Complaint (Provider): Chest pain History Per: Patient History/Exam Limitations: no limitations Onset/Duration Of Symptoms: Days (1) Current Symptoms Are (Timing): Still Present Additional Complaint(s): The patient is a 57yo female with Past medical history of hypertension, hypercholesterolemia presents to the ed for evaluation of left sided chest pain , localized to her left side below her breast for one day. Patient reports the pain is worse with deep inspiration but denies any associated shortness of breath, cough, fever, chills. Patient also reports some paresthesia to her left arm with no numbness or weakness. Patient also denies any pedal edema. She reports she had similar chest pain in March for which she was admitted to the hospital and underwent VQ scan to rule out pulmonary embolism as well as serial troponin and stress test which was all negative. 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 Patient currently offers no additional medical complaints. Past Medical History Reviewed: Historical Data, Nursing Documentation, Vital Signs Vital Signs: Last Vital Signs Temp 97.9 F 05/27/17 22:14 Pulse 56 L 05/27/17 22:14 Resp 19 05/27/17 22:14 BP 162/65 H 05/27/17 22:14 Pulse Ox 98 05/27/17 22:14 - Medical History PMH: HTN (not on any medication), Hypercholesterolemia Denies: HIV, Chronic Kidney Disease - Surgical History Surgical History: - Family History Family History: States: [place] - Social History Current smoker - smoking cessation education provided: No Alcohol: None Drugs: Denies - Home Medications Home Medications: Ambulatory Orders Medication Instructions Recorded Aspirin [Ecotrin] 81 mg PO DAILY 04/10/17 Carvedilol [Coreg] 6.25 mg PO Q12 #60 tab 04/12/17 Ramipril [Altace] 2.5 mg PO DAILY #30 cap 04/12/17 - Allergies Allergies/Adverse Reactions: Allergies Allergy/AdvReac Type Severity Reaction Status Date / Time No Known Allergies Allergy Verified 04/10/17 13:13 Review of Systems ROS Statement: Except As Marked, All Systems Reviewed And Found Negative Constitutional: Negative for: Fever, Chills Cardiovascular: Positive for: Chest Pain (left sided, worse with deep inspiration) Respiratory: Negative for: Cough, Shortness of Breath Musculoskeletal: Negative for: Other (leg swelling) Physical Exam - Reviewed Nursing Documentation Reviewed: Yes Vital Signs Reviewed: Yes - Physical Exam Appears: Positive for: Well, Non-toxic, No Acute Distress Head Exam: Positive for: ATRAUMATIC, NORMAL INSPECTION, NORMOCEPHALIC Skin: Positive for: Normal Color, Warm, DRY Eye Exam: Positive for: Normal appearance Neck: Positive for: Normal, Supple Cardiovascular/Chest: Positive for: Regular Rate, Rhythm, Bradycardia Respiratory: Positive for: Normal Breath Sounds. Negative for: Respiratory Distress Gastrointestinal/Abdominal: Positive for: Soft. Negative for: Tenderness Back: Positive for: Normal Inspection. Negative for: Decreased ROM Extremity: Positive for: Normal ROM. Negative for: Pedal Edema, Deformity, Swelling Lymphatic: Negative for: Adenopathy Neurologic/Psych: Positive for: Alert, Oriented. Negative for: Motor/Sensory Deficits - Laboratory Results Result Diagrams: 05/27/17 23:05 05/27/17 23:05 - ECG ECG: Positive for: Interpreted By Me, Viewed By Me ECG Rhythm: Positive for: Sinus Bradycardia. Negative for: ST/T Changes Interpretation Of ECG: No t-wave inversions No changes compared to prior EKG from March 2017. O2 Sat by Pulse Oximetry: 98 (RA) Pulse Ox Interpretation: Normal Medical Decision Making Medical Decision Making: Time: 2239 Impression: Previous chart reviewed, given patient had negative stress test and presented with similar symptoms in March, highly unlikely that this is acute coronary syndrome. Plan: -- Labs -- Flexeril 10 mg PO -- Toradol 15 mg IVP Reassess Time: 0 Labs reviewed and indicate no clinically significant abnormalities. Chest x-ray reviewed by provider and indicate no acute diseases. Scribe Attestation: Documented by Peace Brito acting as a scribe for Rody Quesada MD. Provider Attestation: All medical record entries made by the Scribe were at my direction and personally dictated by me. I have reviewed the chart and agree that the record accurately reflects my personal performance of the history, physical exam, medical decision making, and the department course for this patient. I have also personally directed, reviewed, and agree with the discharge instructions and disposition. Disposition - Clinical Impression Clinical Impression: Chest pain - Disposition Disposition: Routine/Home Disposition Time: 23:00 Condition: GOOD Additional Instructions: VISIT YOUR JUNIOR LINUX SYSTEMS ADMINISTRATOR SCHEDULED RETURN TO ER IF YOU FEEL WORSE CONTINUE ALL YOUR MEDICATIONS PRESCRIBED. VISITA CARBAJAL CARDIOLOGO MIERCOLES POR CARBAJAL DASHA REGRESA SI SIENTE PEOR CONTINUE TODOS MIRI MEDICAMENTOS A RECETO Instructions: Chest Pain (ED) Forms: [facility] (Spanish) Print Language: ERITREAN
[2017-05-27 23:19] LABS: ALB/GLOB RATIO 1.4 (1.0-2.1); ALBUMIN 4.4 g/dL (3.5-5.0); ALT/SGPT 39 U/L (9-52); AST/SGOT 34 U/L (14-36); BLOOD UREA NITROGEN 20 mg/dl (7-17); CALCIUM 9.4 mg/dL (8.4-10.2); GFR AFRICAN-AMERICAN > 60; GFR NON-AFRICAN AMERICAN > 60; MAGNESIUM 1.9 MG/DL (1.6-2.3)
[2017-05-27 23:52] VITALS: BP 124/75; PULSE 61; RESP 16
--- NOTE | 2017-05-28 07:30 | RAD ---
HISTORY: chest pain COMPARISON: No prior. TECHNIQUE: Chest PA and lateral FINDINGS: LUNGS: No active pulmonary disease. PLEURA: No significant pleural effusion identified. No pneumothorax apparent. CARDIOVASCULAR: Normal. OSSEOUS STRUCTURES: No significant abnormalities. VISUALIZED UPPER ABDOMEN: Normal. OTHER FINDINGS: None. IMPRESSION: No active disease.
--- NOTE | 2017-05-28 12:56 | CARD ---
APPROVED REPORT EKG Measurement Heart [id number] <Conclusion> Sinus bradycardia Possible inferior infarct, age undetermined Abnormal ECG
[2017-05-28 16:15] VITALS: O2SAT 98
== END 2017-05-28 00:06 | disposition home or self-care (01) ==
LOC: H.ER 21:55
DX: I10 Essential (primary) hypertension (principal); R07.89 Other chest pain; E78.00 Pure hypercholesterolemia, unspecified; Z79.82 Long term (current) use of aspirin
CPT/HCPCS: 71020; 80053; 83735; 84100; 84443; 84484; 85025; 93005; 96374; 99283; J1885